=== PATIENT | female | born 1985 | race Caucasian/White ===

== ENCOUNTER 2021-10-19 15:31 | Emergency (ER) | payer SELFPAY ==
[2021-10-19] MEDS ORDERED: Lidocaine 1% w/Epinephrine 1:100K 20 ML VIAL ONE (17:28)
[2021-10-20 14:33] LABS: SARS-CoV-2 PCR by NAA Not Detected (NotDetected)
== END 2021-10-19 18:11 | disposition home or self-care (01) ==
LOC: CSHERS 15:31
DX: J11.1 Influenza due to unidentified influenza virus with other respiratory manifestations (principal); K65.1 Peritoneal abscess; Z20.822 Contact with and (suspected) exposure to COVID-19
CPT/HCPCS: 10060; 71045; 87804; U0003; U0005

== ENCOUNTER 2022-06-29 12:19 | Emergency (ER) | payer SELFPAY ==
[2022-06-29] MEDS ORDERED: Lidocaine 1% (PF) 30 ML VIAL ONE (15:14)
[2022-06-29] MEDS ORDERED: Bacitracin 1 PK ONE (16:03)
== END 2022-06-29 16:04 | disposition home or self-care (01) ==
LOC: CSHERS 12:19
DX: S61.214A Laceration without foreign body of right ring finger without damage to nail, initial encounter (principal); W26.8XXA Contact with other sharp object(s), not elsewhere classified, initial encounter
CPT/HCPCS: 12001; J2001

== ENCOUNTER 2022-07-16 10:29 | Emergency (ER) | payer SELFPAY | END 2022-07-16 12:10 | disposition home or self-care (01) | LOC: CSHERS 10:29 | DX: S61.214D Laceration without foreign body of right ring finger without damage to nail, subsequent encounter (principal); B37.31 Acute candidiasis of vulva and vagina; X58.XXXD Exposure to other specified factors, subsequent encounter ==